=== PATIENT | female | born 1970 ===

== ENCOUNTER 2024-12-03 11:00 | Inpatient (IN) | payer MEDICAID, SELFPAY ==
[2024-12-03] VITALS (16 sets, daily range): BP systolic 92–130; BP diastolic 43–76; PULSE 59–87; RESP 16–18; TEMP 36.3–37.1; O2SAT 94–99; BMI 22.4; BMI 23.1
--- NOTE | ~2024-12-03 | CT_ITS ---
EXAMINATION: CT ABDOMEN AND PELVIS WITHOUT CONTRAST CLINICAL INFORMATION: Flank pain. Renal colic COMPARISON: None available. TECHNIQUE: Multidetector volumetric imaging was performed from the superior aspect of the liver through the pubic symphysis. Sagittal and coronal reformatted images were obtained on the technologist's workstation. This CT examination was performed using dose optimization techniques as appropriate, variously including the following: *Automated exposure control *Adjustment of mA and/or kV according to patient size (this includes techniques or standardized protocols for targeted exams where dose is matched to indication/reason for exam; i.e. extremities or head) *Use of iterative reconstruction technique DLP: 414 mGy/cm. FINDINGS: LUNG BASES: The visualized lung bases are unremarkable. LIVER, GALLBLADDER, AND BILIARY TREE: The liver is normal in size, shape, and attenuation. No focal hepatic lesion or biliary ductal dilatation is present. The gallbladder is unremarkable with no evidence of radiopaque gallstones, gallbladder wall thickening, or obvious pericholecystic inflammatory changes. PANCREAS: Unremarkable. SPLEEN: Unremarkable. ADRENAL GLANDS: Unremarkable. KIDNEYS AND URETERS: The kidneys are normal in size, shape, and attenuation. No hydronephrosis, hydroureter, or calculi seen. No perinephric stranding. BLADDER: Unremarkable. GASTROINTESTINAL TRACT: The appendix is enlarged with the distal 1 cm calcified appendicolith. There is fatty appendix fat stranding and very small lymph nodes in the ileocecal mesentery. The IC junction is unremarkable. Mild bowel loops are normal caliber. There is scattered stool in the colon without distention. No free air or free fluid seen. ABDOMINAL WALL: No significant hernia is appreciated. LYMPH NODES: Normal. VASCULAR: Unremarkable. PELVIC VISCERA: The uterus is anteverted and appears unremarkable. No adnexal mass or free fluid seen. There are round calcified lesions in the inguinal canal left slightly larger than right. They measure 1.1 cm on the right and 2.7 cm on the left. OSSEOUS STRUCTURES: No aggressive lytic or sclerotic process noted. CT/CT abdomen pelvis wo IV con IMPRESSION: Acute appendicitis with appendicolith. Mild constipation. No free air, free fluid or obstruction seen. Round and calcified lesions in the inguinal canal question old cysts. Fleischner guidelines were followed. Electronically signed by: Sergio Rodriguez MD 12/03/2024 02:04 PM EDT
--- NOTE | 2024-12-03 11:42 | ED_ITS ---
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 Last PO intake yesterday. She cannot take the pain anymore. No known fevers does not take thinners. She has no urinary symptoms. MD complaint: abdominal pain Onset (ago): day(s) (yesterday) Location: abdomen Radiation: non-radiation Severity: moderate Quality: aching Pain Consistency: constant Relieving factors: none Exacerbating factors: movement Associated symptoms: loss of appetite, malaise and nausea/vomiting Treatments prior to arrival: none Related Data Allergies Allergy/AdvReac Type Severity Reaction Status Date / Time No Known Allergies Allergy Verified 12/03/24 11:43 Review of Systems 2 Review of Systems: Constitutional : No Weight loss, No Fever, No Chills ENT/Mouth : No sore throat, No Rhinorrhea Eyes: No Swelling, No Redness Cardiovascular : No Chest Pain, No SOB, NoEdema Respiratory : No Cough, No Sputum, No Wheezing Gastrointestinal : Positive Nausea, Positive Vomiting, no Diarrhea, positive abdominal Pain, No Hematochezia, No Melena Genitourinary : No Dysuria, No Urinary Frequency, No Hematuria, No Urgency Musculoskeletal : No joint pain, No Myalgias, No Joint Swelling Skin : No Skin Lesions, No rash Neuro : No Weakness, No Numbness, No Dizziness, No Headache All other systems reviewed and are negative. [facility] Past Medical History Medical History (Updated 12/03/24 @ 14:59 by Radha Gray DO) Insomnia Surgical History (Updated 12/03/24 @ 14:53 by Radha Gray DO) H/O section Social History Social History (Updated 12/03/24 @ 14:53 by Radha Gray DO) Patient Tobacco Use Status: Never used Tobacco Advance Directives: No Advance Directives Information Provided: Yes Physical Exam ED Vital Signs: Vital Signs - 24 hr 12/03/24 11:39 12/03/24 14:09 Temperature 97.4 F 98.3 F Pulse Rate 87 70 Respiratory Rate 16 18 Blood Pressure 130/76 120/65 Pulse Oximetry 99 99 Oxygen Delivery Method Room Air Room Air BMI result Body Mass Index 22.4 Appearance: Alert. Oriented X3. No acute distress. Eyes: Pupils equal, round and reactive to light. ENT: Pharynx normal. Neck: Normal inspection. Neck supple. CVS: Normal heart rate and rhythm. Pulses normal. Respiratory: No respiratory distress. Breath sounds normal. Abdomen: Soft and moderate ttp on RLQ with guarding and rebound Skin: Skin warm and dry. Normal skin color. Normal skin turgor. Extremities: No lower extremity edema. No calf ttp Neuro: Oriented X 3. No motor deficit. No sensory deficit. CN2-12 intact Course Course Course Narrative: This is a rapid medical exam performed by Marivel Pringle PA-C. The patient is a 54-year-old female with chronic back pain who presents with right flank pain since this morning. Pain over mid to lower right flank with radiation to right lower extremity. Associated nausea vomiting. Denies dysuria, hematuria or history of kidney stones. On exam she does have positive CVA tenderness. Plan to order screening labs a urinalysis and a CT scan. The patient was stable and can return to the waiting room pending her full medical assessment. Medications Administered Discontinued Medications Generic Name Dose Route Start Last Admin Trade Name Reddq PRN Reason Stop Dose Admin Piperacillin Sod/Tazobactam 50 mls @ 100 mls/hr 12/03/24 14:19 12/03/24 14:43 Sod 3.375 gm/ Sodium Chloride IV 12/03/24 14:48 100 mls/hr ONCE ONE Administration Ketorolac Tromethamine 15 mg 12/03/24 14:19 12/03/24 14:44 Ketorolac Tromethamine 15 Mg/Ml Vial IVPUSH 12/03/24 14:20 15 mg ONCE ONE Administration Morphine Sulfate 4 mg 12/03/24 14:12/03/24 14:44 Morphine Sulfate 4 Mg/Ml Cartridge IVPUSH 12/03/24 14:20 4 mg ONCE ONE Administration Protocol Medical Decision Making Medical Decision Making MDM Narrative: 54 yo female with no sig PMH here with RLQ pain very tender to touch with nausea, last PO intake was yesterday, not on thinners here with features concerning for appendicitis. At this time basic labs, CT scan, IVF, IV morphine for pain, pending work up. NPO since arrival. Differential Diagnosis Differential Diagnoses: The differential diagnosis associated with the presentation includes appendicitis, constipation, colitis, renal colic, less likely ovarian pathology Admission/Observation Consideration of admission/observation: Escalation of care including admission/observation considered send to surgery - Dr. Landeros Lab Data MDM Lab Attestation statement: I reviewed the patient's lab results. 12/03/24 12:21 12/03/24 12:21 Labs: Lab Results 12/03/24 12/03/24 Range/Units 12:21 14:35 WBC 11.2 H (4.8-10.8) X10*3/uL RBC 4.43 (4.20-5.50) X10*6/uL Hgb 12.9 (12.0-16.0) g/dl Hct 38.6 (37.0-47.0) % MCV 87.1 (80.0-98.0) fL MCH 29.1 (27.0-33.0) pg MCHC 33.4 (31.0-35.0) g/dl RDW 12.9 (11.0-16.0) % Plt Count 255 (160-400) X10*3/uL MPV 10.1 (9.4-12.3) fL Immature Gran % (Auto) 0.3 (0.0-0.4) % Neut % (Auto) 73.3 H (45-73) % Lymph % (Auto) 16.9 L (20-40) % [place] % (Auto) 9.0 (2-11) % Eos % (Auto) 0.1 (0-4) % Baso % (Auto) 0.4 (0-2) % Lymph # (Auto) 1.9 (1.2-4.9) X10*3/uL [place] # (Auto) 1.0 (0.1-1.2) X10*3/uL Eos # (Auto) 0.0 (0.0-0.4) X10*3/uL Baso # (Auto) 0.0 (0.0-0.2) X10*3/uL Abs Immat Gran (auto) 0.03 (0.00-0.03) X10*3/uL Absolute Neuts (auto) 8.2 (2.0-8.3) x10*3/uL Absolute Nucleated RBC 0.000 (0.0-0.012) X10*3/uL Nucleated RBC % (auto) 0.0 (0.0-0.2) /100WBC Sodium 141 (135-145) mmol/L Potassium 4.1 (3.3-5.1) mmol/L Chloride 105 (96-108) mmol/L Carbon Dioxide 25 (22-29) mmol/L Anion Gap 15 (12-20) BUN 7 L (9-16) mg/dL Creatinine 0.72 (0.5-1.4) mg/dL Estim Creat Clear Calc 78.9 Estimated GFR > 60 Random Glucose 107 (60-115) mg/dL Calcium 9.8 (8.4-10.2) mg/dL Magnesium 2.1 (1.6-2.6) mg/dL Total Bilirubin 0.6 (0.0-1.0) mg/dL AST 22 (5-31) U/L ALT 17 (0-31) U/L Alkaline Phosphatase 90 (39-117) U/L Total Protein 8.0 (6.5-8.0) g/dL Albumin 4.4 (3.5-5.0) g/dL Beta HCG, Quant < 2 mIU/mL Urine Color Yellow Urine Appearance Cloudy Urine pH 8.5 (5.0-9.0) Ur Specific [place] 1.020 (1.005-1.025) Urine Protein Negative (Neg-Trace) mg/dL Urine Glucose (UA) Negative (Negative) mg/dL Urine Ketones 80 (Negative) mg/dL Urine Blood Negative (Negative) Urine Nitrite Negative (Negative) Ur Leukocyte Esterase Negative (Negative) Independent Interpretation I performed an independent interpretation of an: EKG and CT Scan (+ appendicitis) Interpretation: Rate: 78 Rhythm: NSR [place]: normal Normal P waves. Normal LION. Normal QRS complex. ST T wave : normal no DAVID qTC: 442 prior studies: no acute ischemia The study has been interpreted contemporaneously by me. . Radiology Impression Discussion of test interpretation with radiology: I have reviewed the radiologist's reading. Critical Care Time Critical Care Time Critical Care Time: Yes Total Critical Care Time: 35 Attestation: appendicitis work up, referral to surgery, IV morphine with improvement in pain. I attest to this time spent taking care of the patient Discharge Plan Discharge Clinical Impression: Abdominal pain Qualifiers: Abdominal location: right lower quadrant Qualified Code(s): R10.31 - Right lower quadrant pain Acute appendicitis Qualifiers: Acute appendicitis type: unspecified acute appendicitis type Qualified Code(s): K35.80 - Unspecified acute appendicitis Print Language: Azeri
[2024-12-03 12:29] LABS: MANUAL DIFF FLAG NO
[2024-12-03 12:31] LABS: Basophils Percent Auto 0.4 % (0-2); Eosinophils Percent Auto 0.1 % (0-4); Hematocrit 38.6 % (37.0-47.0); Hemoglobin 12.9 g/dl (12.0-16.0); Imm Gran Abs Auto 0.03 X10*3/uL (0.00-0.03); Imm Gran Pct Auto 0.3 % (0.0-0.4); Lymphocytes Absolute Auto 1.9 X10*3/uL (1.2-4.9); Lymphocytes Percent Auto 16.9 % (20-40); Mean Corpuscular HGB Conc 33.4 g/dl (31.0-35.0); Mean Corpuscular Hemoglobin 29.1 pg (27.0-33.0); Mean Corpuscular Volume 87.1 fL (80.0-98.0); Mean Platelet Volume 10.1 fL (9.4-12.3); Neutrophils Absolute Auto 8.2 x10*3/uL (2.0-8.3); Neutrophils Percent Auto 73.3 % (45-73); Platelet Count 255 X10*3/uL (160-400); Red Blood Count 4.43 X10*6/uL (4.20-5.50); Red Cell Distribution Width 12.9 % (11.0-16.0); White Blood Count 11.2 X10*3/uL (4.8-10.8)
[2024-12-03 12:53] LABS: Alanine Aminotransferase 17 U/L (0-31); Albumin Level 4.4 g/dL (3.5-5.0); Alkaline Phosphatase 90 U/L (39-117); Anion Gap 15 (12-20); Aspartate Amino Transferase 22 U/L (5-31); Bilirubin Total 0.6 mg/dL (0.0-1.0); Blood Urea Nitrogen 7 mg/dL (9-16); Calcium 9.8 mg/dL (8.4-10.2); Carbon Dioxide 25 mmol/L (22-29); Chloride 105 mmol/L (96-108); Creatinine Clr Calc Pharmacy 78.9; Estimated Glomerular Filt Rate > 60; Glucose Random 107 mg/dL (60-115); Magnesium 2.1 mg/dL (1.6-2.6); Potassium 4.1 mmol/L (3.3-5.1); Sodium 141 mmol/L (135-145)
[2024-12-03 13:00] LABS: HCG Quantitative < 2 mIU/mL
--- NOTE | 2024-12-03 14:37 | ECG_ITS ---
Test Reason : ABD PAIN Blood Pressure : */* mmHG Vent. Rate : 78 BPM Atrial Rate : 78 BPM P-R Int : 122 ms QRS Dur : 82 ms QT Int : 388 ms P-R-T Axes : 71 58 63 degrees QTcB Int : 442 ms Normal sinus rhythm Normal ECG No previous ECGs available Referred By: Radha Gray Electronically Signed By: Cory Deshpande
[2024-12-03 14:41] LABS: Appearance Urine Cloudy; Color Urine Yellow; Glucose Urine UA Negative (Negative); Leukocyte Esterase Urine Negative (Negative); Nitrite Urine Negative (Negative); PH 8.5 (5.0-9.0); Urine Blood Negative (Negative); Urine Ketones 80 mg/dL (Negative); Urine Protein Negative (Neg-Trace)
[2024-12-03] MEDS: Piperacillin Sodium/Tazobactam 3.375 GM in 0.9 % Sodium Chloride 50 ML IV ×2 (14:43→20:35)
[2024-12-03] MEDS: Ketorolac Tromethamine 15 MG/ML VIAL IVPUSH (14:44)
[2024-12-03] MEDS: Morphine Sulfate 4 MG/ML CARTRIDGE IVPUSH (14:44)
--- NOTE | 2024-12-03 15:02 | PC.NURSE ---
Report over the phone to pre-op RN. per RN hold off on LR for right now, she will hang with aster
--- NOTE | 2024-12-03 15:04 | PM.HPGS ---
History of Present Illness History of Present Illness Date of Service: 12/04/24 Chief complaint: Acute appendicitis Narrative: Guilherme Talavera is a 54 year old female here in the ED for right lower quadrant pain. She says that she has had this right core quadrant pain for 2 days now. She said she had multiple episodes of vomiting yesterday as well. She denies any diarrhea. She says the pain is constant. She denies any fever at home. She denies any medical problems. She does not have any primary care physician as she just moved from [place] to the [facility] recently. She denies taking any medications. She has a history of 2 C sections and abdominoplasty. Review of Systems Constitutional: Constitutional: Denies chills and Denies fever(s) Cardiovascular: Cardiovascular: Denies chest pain, Denies dyspnea and Denies dyspnea on exertion Respiratory: Respiratory: Denies cough, Denies dyspnea and Denies dyspnea on exertion Gastrointestinal: Gastrointestinal: Denies hematochezia and Denies change in bowel habits Genitourinary: Genitourinary: Denies hematuria Musculoskeletal: Musculoskeletal: Denies back pain and Denies limited range of motion Neurologic: Denies focal weakness and Denies convulsions Psychiatric: Psychiatric: Denies depression and Denies mood swings PMFSH Past Medical History Medical History (Updated 12/03/24 @ 15:22 by Kimberly Deras RN) History of herniated intervertebral disc Neuropathy Insomnia Surgical History Surgical History (Updated 12/04/24 @ 07:30 by Peg Dorado PA-C) H/O abdominal surgery H/O breast surgery H/O section Social History Social History (Updated 12/03/24 @ 14:53 by Radha Gray DO) Household Members: None Housing: House Are you a primary grounds caretaker to a significant other at home: No Do you presently have visiting nurse or other home services: No Unable to assess alcohol history related to: Unknown Patient Tobacco Use Status: Never used Tobacco Smoked in Last 30 Days: No Use of substances other than those prescribed or required for medical reasons: No Currently Displaying Signs/Symptoms of Drug Intoxication Withdrawal: No Have you been hit, kicked, punched, or otherwise hurt by someone within the past year? If so, by whom?: No Do you feel safe in your current relationship?: No Current Relationship Is there a partner from a previous relationship who is making you feel unsafe now?: No Are you made to feel afraid or neglected: No Are you DNR?: No Advance Directives: No Advance Directives Information Provided: No Advance Directives on File: No Do you have a plan to hurt others: No Plan Recently lost weight without trying: No How much weight loss: Not applicable Eating poorly because of decreased appetite: No Nutrition screen score: 0 Nutrition Risks: No Nutritional Risk Patient : No : No Poor oral hygiene: No Meds Allergies Allergy/AdvReac Type Severity Reaction Status Date / Time No Known Allergies Allergy Verified 12/03/24 15:18 Active Medications: Current Medications Lactated Ringer's (Lr) 1,000 mls @ 999 mls/hr IV .Q1H1M ONE Stop: 12/03/24 15:19 Physical Exam Vital Signs: Vital Signs: Last Vital Signs Temp 98.3 F 12/03/24 14:09 Pulse 70 12/03/24 14:09 Resp 18 12/03/24 14:09 BP 120/65 12/03/24 14:09 Pulse Ox 99 12/03/24 14:09 O2 Del Method Room Air 12/03/24 14:09 BMI result Body Mass Index 22.4 Const: General: comfortable and no acute distress Orientation/consciousness: patient oriented x3 Neck: Neck: Yes no lymphadenopathy Resp: Auscultation: clear to auscultation bilaterally Cardio: Rhythm: regular rhythm GI: Other: Has significant right lower quadrant tenderness Palpation (GI): Soft to palpation, Tenderness to palpation present (GI) and no guarding Neuro: General: patient oriented x3 Results Results Labs: Short CBC 12/03/24 Range/Units 12:21 WBC 11.2 H (4.8-10.8) X10*3/uL Hgb 12.9 (12.0-16.0) g/dl Hct 38.6 (37.0-47.0) % Plt Count 255 (160-400) X10*3/uL BMP 12/03/24 12:21 Sodium 141 Potassium 4.1 Chloride 105 Carbon Dioxide 25 BUN 7 L Creatinine 0.72 Calcium 9.8 Liver Function 12/03/24 Range/Units 12:21 Total Bilirubin 0.6 (0.0-1.0) mg/dL AST 22 (5-31) U/L ALT 17 (0-31) U/L Alkaline Phosphatase 90 (39-117) U/L Albumin 4.4 (3.5-5.0) g/dL Urine 12/03/24 Range/Units 14:35 Urine Color Yellow Urine Appearance Cloudy Urine pH 8.5 (5.0-9.0) Ur Specific [place] 1.020 (1.005-1.025) Urine Protein Negative (Neg-Trace) mg/dL Urine Glucose (UA) Negative (Negative) mg/dL Abdomen CT scan report/results: report reviewed and image reviewed CT scan - pelvis: report reviewed and image reviewed Additional studies: Laboratory Results WBC 11.2 X10*3/uL (4.8-10.8) H 12/03/24 12:21 RBC 4.43 X10*6/uL (4.20-5.50) 12/03/24 12:21 Hgb 12.9 g/dl (12.0-16.0) 12/03/24 12:21 Hct 38.6 % (37.0-47.0) 12/03/24 12:21 MCV 87.1 fL (80.0-98.0) 12/03/24 12:21 MCH 29.1 pg (27.0-33.0) 12/03/24 12:21 MCHC 33.4 g/dl (31.0-35.0) 12/03/24 12:21 RDW 12.9 % (11.0-16.0) 12/03/24 12:21 Plt Count 255 X10*3/uL (160-400) 12/03/24 12:21 MPV 10.1 fL (9.4-12.3) 12/03/24 12:21 Immature Gran % (Auto) 0.3 % (0.0-0.4) 12/03/24 12:21 Neut % (Auto) 73.3 % (45-73) H 12/03/24 12:21 Lymph % (Auto) 16.9 % (20-40) L 12/03/24 12:21 [place] % (Auto) 9.0 % (2-11) 12/03/24 12:21 Eos % (Auto) 0.1 % (0-4) 12/03/24 12:21 Baso % (Auto) 0.4 % (0-2) 12/03/24 12:21 Lymph # (Auto) 1.9 X10*3/uL (1.2-4.9) 12/03/24 12:21 [place] # (Auto) 1.0 X10*3/uL (0.1-1.2) 12/03/24 12:21 Eos # (Auto) 0.0 X10*3/uL (0.0-0.4) 12/03/24 12:21 Baso # (Auto) 0.0 X10*3/uL (0.0-0.2) 12/03/24 12:21 Abs Immat Gran (auto) 0.03 X10*3/uL (0.00-0.03) 12/03/24 12:21 Absolute Neuts (auto) 8.2 x10*3/uL (2.0-8.3) 12/03/24 12:21 Absolute Nucleated RBC 0.000 X10*3/uL (0.0-0.012) 12/03/24 12:21 Nucleated RBC % (auto) 0.0 /100WBC (0.0-0.2) 12/03/24 12:21 Sodium 141 mmol/L (135-145) 12/03/24 12:21 Potassium 4.1 mmol/L (3.3-5.1) 12/03/24 12:21 Chloride 105 mmol/L (96-108) 12/03/24 12:21 Carbon Dioxide 25 mmol/L (22-29) 12/03/24 12:21 Anion Gap 15 (12-20) 12/03/24 12:21 BUN 7 mg/dL (9-16) L 12/03/24 12:21 Creatinine 0.72 mg/dL (0.5-1.4) 12/03/24 12:21 Estim Creat Clear Calc 78.9 12/03/24 12:21 Estimated GFR > 60 12/03/24 12:21 Random Glucose 107 mg/dL (60-115) 12/03/24 12:21 Calcium 9.8 mg/dL (8.4-10.2) 12/03/24 12:21 Magnesium 2.1 mg/dL (1.6-2.6) 12/03/24 12:21 Total Bilirubin 0.6 mg/dL (0.0-1.0) 12/03/24 12:21 AST 22 U/L (5-31) 12/03/24 12:21 ALT 17 U/L (0-31) 12/03/24 12:21 Alkaline Phosphatase 90 U/L (39-117) 12/03/24 12:21 Total Protein 8.0 g/dL (6.5-8.0) 12/03/24 12:21 Albumin 4.4 g/dL (3.5-5.0) 12/03/24 12:21 Beta HCG, Quant < 2 mIU/mL 12/03/24 12:21 Urine Color Yellow 12/03/24 14:35 Urine Appearance Cloudy 12/03/24 14:35 Urine pH 8.5 (5.0-9.0) 12/03/24 14:35 Ur Specific [place] 1.020 (1.005-1.025) 12/03/24 14:35 Urine Protein Negative mg/dL (Neg-Trace) 12/03/24 14:35 Urine Glucose (UA) Negative mg/dL (Negative) 12/03/24 14:35 Urine Ketones 80 mg/dL (Negative) 12/03/24 14:35 Urine Blood Negative (Negative) 12/03/24 14:35 Urine Nitrite Negative (Negative) 12/03/24 14:35 Ur Leukocyte Esterase Negative (Negative) 12/03/24 14:35 Impressions Abdomen/Pelvis CT 12/03/24 11:43 IMPRESSION: Acute appendicitis with appendicolith. Mild constipation. No free air, free fluid or obstruction seen. Round and calcified lesions in the inguinal canal question old cysts. Fleischner guidelines were followed. Electronically signed by: Sergio Rodriguez MD 12/03/2024 02:04 PM EDT Assessment and Plan (1) Acute appendicitis: Qualifiers: Acute appendicitis type: unspecified acute appendicitis type Qualified Code(s): K35.80 - Unspecified acute appendicitis Status: Acute She has significant right lower quadrant pain and tenderness. Her CAT scan shows inflammatory changes surrounding the appendix with a thickened appendix and an appendicolith consistent with acute appendicitis. I therefore explained to her that it will be best to proceed with appendectomy. I explained the technique of laparoscopic appendectomy and possible open appendectomy. I reviewed the risks including but not limited to bleeding, infections, staple line leak, injury to bowel, the urinary tract or other organs, abscesses, inherent risks of anesthesia, as well as the benefits and alternatives. She understands and agrees to proceed. Her family was present during the discussion. I also used an director of healthcare systems for [place] during the discussion. She is not septic looking. Quality Stroke Does the patient have a stroke diagnosis?: No VTE Prior VTE?: No VTE Risk Level:: Medical - moderate - high VTE Device Contraindication: N/A - Device Ordered VTE Drug Contraindication: N/A - Med Ordered Procedures Date of Service Date of Service: 12/04/24
--- NOTE | 2024-12-03 15:39 | HO.ANESPROP2 ---
[facility] Active Problems Active Problems: All Active Problems Acute appendicitis (Acute) Abdominal pain (Acute) Past Medical History Medical History (Updated 12/03/24 @ 15:22 by Kimberly Deras RN) History of herniated intervertebral disc Neuropathy Insomnia Family History Family history of problems with anesthesia: No Surgical History Surgical History (Updated 12/03/24 @ 15:17 by Kimberly Deras RN) H/O abdominal surgery H/O breast surgery H/O section History of Problems with Anesthesia: No Social History Social History (Updated 12/03/24 @ 14:53 by Radha Gray DO) Are you a primary director of patient care to a significant other at home: No Do you presently have visiting nurse or other home services: No Unable to assess alcohol history related to: Unknown Patient Tobacco Use Status: Never used Tobacco Smoked in Last 30 Days: No Use of substances other than those prescribed or required for medical reasons: No Have you been hit, kicked, punched, or otherwise hurt by someone within the past year? If so, by whom?: No Are you DNR?: No Advance Directives: No Advance Directives Information Provided: No Advance Directives on File: No Recently lost weight without trying: No How much weight loss: Not applicable Eating poorly because of decreased appetite: No Nutrition screen score: 0 Nutrition Risks: No Nutritional Risk Patient : No : No Poor oral hygiene: No Meds Allergies Allergy/AdvReac Type Severity Reaction Status Date / Time No Known Allergies Allergy Verified 12/03/24 15:18 Active Medications: Current Medications Acetaminophen (Acetaminophen 325 Mg Tablet) 650 mg PO Q6H PRN PRN Reason: Pain, Mild 1-3,fever,headache Calcium Carbonate (Calcium Carbonate 750 Mg Tab.Chew) 750 mg PO Q4H PRN PRN Reason: Heartburn Heparin Sodium (Porcine) (Heparin Sodium,Porcine 5,000 Unit/Ml Vial) 5,000 unit SUBCUT Q12H DEREK Lactated Ringer's (Lr) 1,000 mls @ 100 mls/hr IVCONT .Q10H DEREK Piperacillin Sod/Tazobactam (Sod 3.375 gm/ Sodium Chloride) 50 mls @ 100 mls/hr IV Q6H DEREK Magnesium Hydroxide (Milk Of Magnesia 30 Ml Oral.Susp) 30 ml PO DAILY PRN PRN Reason: Constipation Melatonin (Melatonin 3 Mg Tablet) 6 mg PO BEDTIME PRN PRN Reason: Insomnia Ondansetron HCl (Ondansetron Hcl 4 Mg/2 Ml Vial) 4 mg IVPUSH Q6H PRN PRN Reason: nausea Sodium Chloride (0.9 % Sodium Chloride Flush 3 Ml Syringe) 3 ml IVFLUSH QSHIFT [facility] Home Medications ?Medication ?Instructions ?Recorded ?Confirmed ?Last Taken ?Type No Known Home Meds 12/03/24 12/03/24 Unknown History Exam Height,Weight and Vital Signs: Height 5 ft 4 in Weight 59.1 kg Last Vital Signs Temp 97.8 F 12/03/24 15:24 Pulse 76 12/03/24 15:24 Resp 16 12/03/24 15:24 BP 121/63 12/03/24 15:24 Pulse Ox 98 12/03/24 15:24 O2 Del Method Room Air 12/03/24 15:24 Pertinent Lab Results Pertinent Lab Results: Laboratory Tests 12/03/24 12/03/24 12:21 14:35 WBC 11.2 H RBC 4.43 Hgb 12.9 Hct 38.6 MCV 87.1 MCH 29.1 MCHC 33.4 RDW 12.9 Plt Count 255 MPV 10.1 Immature Gran % (Auto) 0.3 Neut % (Auto) 73.3 H Lymph % (Auto) 16.9 L [place] % (Auto) 9.0 Eos % (Auto) 0.1 Baso % (Auto) 0.4 Lymph # (Auto) 1.9 [place] # (Auto) 1.0 Eos # (Auto) 0.0 Baso # (Auto) 0.0 Abs Immat Gran (auto) 0.03 Absolute Neuts (auto) 8.2 Absolute Nucleated RBC 0.000 Nucleated RBC % (auto) 0.0 Sodium 141 Potassium 4.1 Chloride 105 Carbon Dioxide 25 Anion Gap 15 BUN 7 L Creatinine 0.72 Estim Creat Clear Calc 78.9 Estimated GFR > 60 Random Glucose 107 Calcium 9.8 Magnesium 2.1 Total Bilirubin 0.6 AST 22 ALT 17 Alkaline Phosphatase 90 Total Protein 8.0 Albumin 4.4 Beta HCG, Quant < 2 Urine Color Yellow Urine Appearance Cloudy Urine pH 8.5 Ur Specific [place] 1.020 Urine Protein Negative Urine Glucose (UA) Negative Urine Ketones 80 Urine Blood Negative Urine Nitrite Negative Ur Leukocyte Esterase Negative Airway Mallampati Class: II (right upper lateral implant) TM Dist: >3cm Neck ROM: Full Heart: rrr Lungs: cta Assessment and Plan Assessment Anesthesia Assessment: Anesthesia Plan Discussed and Chart Reviewed Final Anesthetic Review Family History of Problems with Anesthesia: No History of Problems with Anesthesia: No NPO: Yes ASA Class: II Final Preanesthetic Review: No Changes in Pt Med Stat, Meds/Allgs Chart Reviewed and Consent Obtained/Reviewed Patient Risk: Low Procedure Risk: Low Anesthetic Plan Anesthetic Plan: GA Disposition: Standard PACU
--- NOTE | 2024-12-03 17:04 | W.PM.OPN ---
Operative Note Operative Note Date of Service: 12/03/24 Narrative: Preop diagnosis: Acute appendicitis Postop diagnosis: The same with extensive adhesions Procedure: Laparoscopic appendectomy, with extensive lysis of adhesions Surgeon: Chinmay Landeros MD International Project Engineer: SUKHJINDER Lambert student The patient is a 54 year female with right lower quadrant pain for 2 days. Her CAT scan suggest acute appendicitis with an appendicolith. I recommended proceeding with appendectomy. She understood the technique of the planned procedure as well as the risks, benefits, and alternatives She was brought to the operating room. She was placed supine under general anesthesia via endotracheal tube. A Pringle catheter had been inserted. The abdomen was prepped and draped in the usual sterile fashion. A surgical time-out was done. The patient had received scheduled IV antibiotics in the ED I made a short supraumbilical incision with a blade 15. And this was carried down with blunt dissection through the full-thickness of the skin and subcutaneous fat down to the fascia. The fascia was incised. The peritoneum was entered. Through this incision a Meraz port was introduced. Pneumoperitoneum was introduced to a pressure of 15 mm Hg. From here on the rest of the procedure was done under vision with with a 10 mm 30 degree laparoscope. With laparoscopic visualization and inserted a 5/12 mm port in the left lower quadrant through a small stab incision. A 5 mm port was introduced through a small incision in the suprapubic margin. Graspers were placed through this working ports. The patient was placed in a head down and [id number] position. There was note of extensive adhesions in the lower abdomen from her previous C-sections. I had to do careful lysis of adhesions with the LigaSure. Eventually was able to release all these adhesions and achieve visualization on the lower abdomen The cecum was seen. By following this, as able to visualize the very indurated appendix that was very adherent to the right sidewall. I had to do careful dissection with the LigaSure to release this indurated adhesions tethering the appendix to the sidewall. I then applied a grasper on the mid appendix to retract this. By doing so was able to visualize this interface with the cecum. I used the LigaSure carefully create a mesenteric window. This was done at the base of the appendix. I then used the Endo-MARSHALL 30 mm stapler to divide the appendix at the base. I then retracted the appendix to carefully identify the mesoappendix. I had to do careful dissection with the LigaSure to divide the mesoappendix. The distal artery was seen and this was divided as well with a against LigaSure. I continued to divide the very indurated and markedly inflamed mesoappendix using the LigaSure carefully anterior the entire appendix was completely transected. The appendix was retrieved through an endobag through the left lower quadrant incision I reinserted all ports and re-insufflated. I examined all 4 quadrants. There was no other pathology. There was no evidence of any bowel injury. There was note of good hemostasis on the staple line. There was no bleeding seen I therefore desufflated. I desufflated through the port and removed all ports under vision with the laparoscope. The umbilical port was removed last. The fascia of the umbilical incision was closed with a [id number] Polysorb 0 stitch. Skin closure was achieved on all incisions using Polysorb 4-0 subcuticular running sutures. Dressings were applied and the procedure was completed The patient tolerated procedure well. There were no immediate complications. Initial final counts of sponges and instruments were correct. Estimated blood loss was about 25 cc The patient was extubated without difficulty and transferred to the recovery room with stable vital signs. The Pringle catheter was removed at the end.
--- NOTE | 2024-12-03 17:24 | PM.EVENT ---
Event Note Date of Service: 12/04/24 Event Note: Seen in the recovery room postop Status post laparoscopic appendectomy She says she has good pain control Stable vital signs Abdomen soft I explained to her the findings I updated her family She is okay to have diet tonight Pain management Possible home tomorrow Time Spent With Patient Time: Total time managing care of this patient today ____ minutes.
--- NOTE | 2024-12-03 19:28 | PHA.MEDREC ---
Addendum entered by Kade [facility] 12/03/24 19:35: Med rec checked by [facility] Original Note: Pharmacy Consult ? Medication Reconciliation Pharmacy has reviewed the medication reconciliation done by nursing.
[2024-12-03] MEDS: Lactated Ringers 1,000 ML 80 ML IVCONT (19:43)
[2024-12-03] MEDS: 0.9 % Sodium Chloride Flush 3 ML SYRINGE IVFLUSH (19:47)
[2024-12-03] MEDS: Morphine Sulfate 4 MG/ML CARTRIDGE 3 MG IVPUSH (22:29)
[2024-12-03] MEDS: Melatonin 3 MG TABLET 6 MG PO (22:30)
[2024-12-04] MEDS: Piperacillin Sodium/Tazobactam 3.375 GM in 0.9 % Sodium Chloride 50 ML IV (02:25)
[2024-12-04 03:38] VITALS: BP 111/58; PULSE 58; RESP 16; TEMP 36; O2SAT 98
[2024-12-04 06:51] VITALS: BP 100/54; PULSE 59; RESP 16; TEMP 36.6; O2SAT 99
--- NOTE | 2024-12-04 07:29 | PM.PNGS ---
Subjective Subjective Date of Service: 12/04/24 <Peg Dorado PA-C - Last Filed: 12/04/24 07:32> 12/04/24 <Chinmay Landeros MD - Last Filed: 12/04/24 07:54> Interval history: Feels well. Tolerating solid diet without nausea or vomiting. OOB and ambulating, voiding on own. Mild pain but comfortable. Feels ready for discharge. <Peg Dorado PA-C - Last Filed: 12/04/24 07:32> Physical Exam Vital Signs: Vital Signs: Last Vital Signs Temp 97.9 F 12/04/24 06:51 Pulse 59 12/04/24 06:51 Resp 16 12/04/24 06:51 BP 100/54 L 12/04/24 06:51 Pulse Ox 99 12/04/24 06:51 O2 Del Method Room Air 12/04/24 06:51 BMI result Body Mass Index 23.1 <Peg Dorado PA-C - Last Filed: 12/04/24 07:32> Const: General: comfortable, no acute distress and alert <Peg Dorado PA-C - Last Filed: 12/04/24 07:32> Orientation/consciousness: patient oriented x3 <ISRRAEL Peoples Last Filed: 12/04/24 07:32> Resp: Effort & Inspection: normal respiratory effort <Peg Dorado PA-C - Last Filed: 12/04/24 07:32> GI: Inspection: No distended and Yes incision (dressings intact) <Peg Dorado PA-C - Last Filed: 12/04/24 07:32> Palpation (GI): Soft to palpation, Tenderness to palpation present (GI) (mild incisional) and no guarding <Peg Dorado PA-C - Last Filed: 12/04/24 07:32> Skin: General skin exam: no rashes or lesions noted <ISRRAEL Peoples Last Filed: 12/04/24 07:32> Neuro: General: patient oriented x3 and moves all extremities <ISRRAEL Peoples Last Filed: 12/04/24 07:32> Objective Data Active Medications Acetaminophen (Acetaminophen 325 Mg Tablet) 650 mg PO Q6H PRN PRN Reason: Pain, Mild 1-3,fever,headache Calcium Carbonate (Calcium Carbonate 750 Mg Tab.Chew) 750 mg PO Q4H PRN PRN Reason: Heartburn Heparin Sodium (Porcine) (Heparin Sodium,Porcine 5,000 Unit/Ml Vial) 5,000 unit SUBCUT Q12H [facility] Piperacillin Sod/Tazobactam (Sod 3.375 gm/ Sodium Chloride) 50 mls @ 100 mls/hr IV Q6H [facility] Last Infusion: 12/04/24 02:59 Dose: Infused Documented By: PRASANNA Lactated Ringer's (Lr) 1,000 mls @ 80 mls/hr IVCONT .[id number] [facility] Last Infusion: 12/04/24 02:59 Dose: 80 mls/hr Documented By: PRASANNA Magnesium Hydroxide (Milk Of Magnesia 30 Ml Oral.Susp) 30 ml PO DAILY PRN PRN Reason: Constipation Melatonin (Melatonin 3 Mg Tablet) 6 mg PO BEDTIME PRN PRN Reason: Insomnia Last Admin: 12/03/24 22:30 Dose: 6 mg Documented By: PRASANNA Morphine Sulfate (Morphine Sulfate 4 Mg/Ml Cartridge) 3 mg IVPUSH Q4H PRN; Protocol PRN Reason: Pain, Severe (Pain Scale 7-10) Last Admin: 12/03/24 22:29 Dose: 3 mg Documented By: PRASANNA Ondansetron HCl (Ondansetron Hcl 4 Mg/2 Ml Vial) 4 mg IVPUSH Q6H PRN PRN Reason: nausea Oxycodone HCl (Oxycodone Hcl Immed Release 5 Mg Tablet) 5 mg PO Q4H PRN PRN Reason: Pain, Moderate(Pain Scale 4-6) Sodium Chloride (0.9 % Sodium Chloride Flush 3 Ml Syringe) 3 ml IVFLUSH QSHIFT [facility] Last Admin: 12/04/24 06:53 Dose: Not Given Documented By: TRAN Non-Admin Reason: IV Running <Peg Dorado PA-C - Last Filed: 12/04/24 07:32> Labs CBC & Chem 7: 12/03/24 12:21 12/03/24 12:21 <ISRRAEL Peoples Filed: 12/04/24 07:32> Labs: Laboratory Results - last 24 hr 12/03/24 12/03/24 12:21 14:35 MCV 87.1 MCH 29.1 MCHC 33.4 RDW 12.9 Plt Count 255 MPV 10.1 Immature Gran % (Auto) 0.3 Neut % (Auto) 73.3 H Lymph % (Auto) 16.9 L [place] % (Auto) 9.0 Eos % (Auto) 0.1 Baso % (Auto) 0.4 Lymph # (Auto) 1.9 [place] # (Auto) 1.0 Eos # (Auto) 0.0 Baso # (Auto) 0.0 Abs Immat Gran (auto) 0.03 Absolute Neuts (auto) 8.2 Absolute Nucleated RBC 0.000 Nucleated RBC % (auto) 0.0 Anion Gap 15 Estim Creat Clear Calc 78.9 Estimated GFR > 60 Random Glucose 107 Calcium 9.8 Magnesium 2.1 Total Bilirubin 0.6 AST 22 ALT 17 Alkaline Phosphatase 90 Total Protein 8.0 Albumin 4.4 Beta HCG, Quant < 2 Urine Color Yellow Urine Appearance Cloudy Urine pH 8.5 Ur Specific [place] 1.020 Urine Protein Negative Urine Glucose (UA) Negative Urine Ketones 80 Urine Blood Negative Urine Nitrite Negative Ur Leukocyte Esterase Negative <Peg Dorado PA-C - Last Filed: 12/04/24 07:32> Procedures Date of Service Date of Service: 12/04/24 <Peg Dorado PA-C - Last Filed: 12/04/24 07:32> 12/04/24 <Chinmay Landeros MD - Last Filed: 12/04/24 07:54> Progress Note: A&P Assessment and plan (1) Acute appendicitis: Status: Acute <Peg Dorado PA-C - Last Filed: 12/04/24 07:32> Assessment and Plan: Tolerating diet Feels well overall Abdomen is soft and benign Looks well Okay to DC home today I have discussed with the plan for follow-up and wound care Seen and examined independently <Chinmay Landeros MD - Last Filed: 12/04/24 07:54> (2) S/P laparoscopic appendectomy: Status: Acute <Peg Dorado PA-C - Last Filed: 12/04/24 07:32> Assessment and Plan: POD #1 s/p lap appy. Doing well post op, comfortable, tolerating diet. VSS. Abd exam benign with appropriate post op tenderness, clean dressings. Stable for discharge to home today. F/u in office in 2 weeks. <Peg Dorado PA-C - Last Filed: 12/04/24 07:32> Time Spent With Patient Time: Total time managing care of this patient today ____ minutes. <Peg Dorado PA-C - Last Filed: 12/04/24 07:32> Quality Stroke Does the patient have a stroke diagnosis?: No <Peg Dorado PA-C - Last Filed: 12/04/24 07:32> VTE Prior VTE?: No <Peg Dorado PA-C - Last Filed: 12/04/24 07:32> VTE Risk Level:: Medical - moderate - high <Peg Dorado PA-C - Last Filed: 12/04/24 07:32> VTE Device Contraindication: N/A - Device Ordered <Peg Dorado PA-C - Last Filed: 12/04/24 07:32> VTE Drug Contraindication: N/A - Med Ordered <Peg Dorado PA-C - Last Filed: 12/04/24 07:32>
--- NOTE | 2024-12-04 08:21 | HO.POSTANES ---
Post Anesthesia Evaluation Post Anesthesia Evaluation Date of Service: 12/04/24 Vital Signs: Vital Signs Temp Pulse Resp BP Pulse Ox O2 Del Method 12/04/24 06:51 97.9 F 59 16 100/54 L 99 Room Air 12/04/24 03:38 96.8 F 58 16 111/58 L 98 Room Air 12/03/24 23:17 97.5 F 59 16 105/60 94 Room Air Anesthesia: General Mental Status: Awake Pain Control: Satisfactory Nausea/Vomiting: None Hydration: Adequate Anesthesia-Related Issues: No Anes. Related Issues
--- NOTE | 2024-12-04 11:02 | PM.DS ---
DS: Providers Provider Date of Service: 12/04/24 Date of admission: 12/03/24 15:21 Date of discharge: 12/04/24 Primary care physician: None Physician Attending physician on admission: Chinmay Landeros Attending physician on discharge: Chinmay Landeros DS: Diagnosis Discharge Diagnosis (1) Acute appendicitis: Status: Acute DS: Summary Hospital Course Hospital Course: HPI AT ADMISSION: Guilherme Talavera is a 54 year old female here in the ED for right lower quadrant pain. She says that she has had this right core quadrant pain for 2 days now. She said she had multiple episodes of vomiting yesterday as well. She denies any diarrhea. She says the pain is constant. She denies any fever at home. She denies any medical problems. She does not have any primary care physician as she just moved from [place] to the [facility] recently. She denies taking any medications. She has a history of 2 C sections and abdominoplasty. HOSPITAL COURSE: The patient was admitted to the surgical service for further treatment of the acute appendicitis. She elected to proceed with laparoscopic appendectomy. She was added onto the OR schedule for that day. On 12/03/24, a laparoscopic appendectomy was performed by Dr. Landeros without complication. The patient tolerated the procedure well. She had an uncomplicated recovery course. On POD #1, she felt well and was tolerating a solid diet without nausea or vomiting, had good pain control and was ambulating without difficulty. She was hemodynamically stable. Her abdomen was benign with appropriate post op tenderness and clean and intact dressings. She felt ready for discharge. She was discharged to home on 12/04/24 in stable condition. She is to follow up in the office in 2 weeks. Status at Discharge Functional status at discharge: independent ambulation Overall status at discharge: patient is progressing back to baseline Time Attestation Discharge Coordination Time (in mins): 30 Quality: Safe Use of Opioids Does Pt have an Active Cancer Diagnosis on the Problem List?: No Quality: Stroke Does the patient have a stroke diagnosis?: No Physical Exam Vital Signs: Vital Signs: Last Vital Signs Temp 97.9 F 12/04/24 06:51 Pulse 59 12/04/24 06:51 Resp 16 12/04/24 06:51 BP 100/54 L 12/04/24 06:51 Pulse Ox 99 12/04/24 06:51 O2 Del Method Room Air 12/04/24 06:51 BMI result Body Mass Index 23.1 Const: General: comfortable, no acute distress and alert Orientation/consciousness: patient oriented x3 Resp: Effort & Inspection: normal respiratory effort GI: Inspection: No distended and Yes incision (dressings c/d/i) Palpation (GI): Soft to palpation, Tenderness to palpation present (GI) (mild incisional) and no guarding Skin: General skin exam: no rashes or lesions noted Neuro: General: patient oriented x3 and moves all extremities DS: Data Data Completed and Pending Pending studies at discharge: Pending at discharge 12/03/24 16:40 Surgical [PTH] Routine Labs on day of discharge: Laboratory Results - last 24 hr 12/03/24 12/03/24 12:21 14:35 WBC 11.2 H RBC 4.43 Hgb 12.9 Hct 38.6 MCV 87.1 MCH 29.1 MCHC 33.4 RDW 12.9 Plt Count 255 MPV 10.1 Immature Gran % (Auto) 0.3 Neut % (Auto) 73.3 H Lymph % (Auto) 16.9 L [place] % (Auto) 9.0 Eos % (Auto) 0.1 Baso % (Auto) 0.4 Lymph # (Auto) 1.9 [place] # (Auto) 1.0 Eos # (Auto) 0.0 Baso # (Auto) 0.0 Abs Immat Gran (auto) 0.03 Absolute Neuts (auto) 8.2 Absolute Nucleated RBC 0.000 Nucleated RBC % (auto) 0.0 Sodium 141 Potassium 4.1 Chloride 105 Carbon Dioxide 25 Anion Gap 15 BUN 7 L Creatinine 0.72 Estim Creat Clear Calc 78.9 Estimated GFR > 60 Random Glucose 107 Calcium 9.8 Magnesium 2.1 Total Bilirubin 0.6 AST 22 ALT 17 Alkaline Phosphatase 90 Total Protein 8.0 Albumin 4.4 Beta HCG, Quant < 2 Urine Color Yellow Urine Appearance Cloudy Urine pH 8.5 Ur Specific [place] 1.020 Urine Protein Negative Urine Glucose (UA) Negative Urine Ketones 80 Urine Blood Negative Urine Nitrite Negative Ur Leukocyte Esterase Negative Discharge Plan Discharge Anticipated Discharge Date/Time: 12/04/24 09:51 Patient Disposition: Home, Self-Care Discharge Diagnosis: acute appendicitis, s/p lap appy Referrals: Chinmay Landeros MD [Physician] - 2 Weeks Physician,None [Primary Care Provider] - 1 Week Discharge Medications: New docusate sodium [Colace] 100 mg capsule 100 mg PO BID Qty: 30 0RF oxycodone 5 mg tablet 5 mg PO Q4H PRN (Reason: pain (scale score 7-10)) Qty: 26 0RF Rx Instructions: Partial Fill upon patient request. Discharge Orders: Discharge Order (Routine); Ordered 12/04/24 Ordered By: Peg Dorado Diet: Advance to usual diet Activity on Discharge: No heavy lifting Stand Alone Forms: Patient Portal Discharge page Print Language: Greek Activity Restrictions/Additional Instructions: If the incision area is tender, you may apply an ice pack for short intervals (No more than 20 minutes on, followed by at least 20 minutes off). Do not apply heat. Do not use creams, lotions, or topical antibiotics. These can cause infection or allergic reaction. Ok to shower 24 hours after your surgery. Remove bandaids in 2 days and replace. You have steri strips (small white cloth strips) covering your incision- these will fall off ~1 week. Follow up in office with Dr. Landeros in 2 weeks. ([phone]) No heavy lifting (>10-20lbs) or strenuous activity! Call Your Doctor If: -Your temperature exceeds 101? F -You experience excessive pain or swelling -You have an unexpected reaction to medication -You have excessive bleeding -You experience continued vomiting/nausea -Your incision begins to separate -Your incision shows signs of infection such as increased redness, swelling, excessive pain, drainage (light blood or clear fluid is normal) or heat Care Plan Goals: Return to baseline health and resume normal activities following recovery period. Health Concerns: acute appendicitis Plan of Treatment: s/p laparoscopic appendectomy Assessment: Doing well post op.
[2024-12-04] MEDS: oxyCODONE HCl Immed Release 5 MG TABLET PO (11:34)
--- NOTE | 2024-12-04 12:12 | MHC.CM.PN ---
Patient medically cleared for dc home self care via private transport prior to CM assessment.
== END 2024-12-04 11:48 | disposition home or self-care (01) | DRG 224 ==
LOC: HO.ED 14:49 → HO.SSS 15:04 → HO.EDOVER 15:23 → HO.S3 19:01
PROVIDERS: Physician Assistant Medical; Admitting Provider Surgery; Emergency Provider Emergency Medicine; Visit Provider Surgery
PROC: 0DTJ4ZZ Resection of Appendix, Percutaneous Endoscopic Approach (ICD-10-PCS; CPT 44970; principal; 2024-12-03 16:00)
DX: K35.80 Unspecified acute appendicitis (principal); G62.9 Polyneuropathy, unspecified; N99.4 Postprocedural pelvic peritoneal adhesions
CPT/HCPCS: 44970; 36415; 74176; 80053; 81003; 83735; 84702; 85025; 88304; 93005; 99221; 99285; J0330; J1100; J1885; J2003; J2250; J2270; J2405; J2543; J2704; J2795; J3010; J7120

== ENCOUNTER → 2024-12-03 11:43 | Outpatient (BNV) | payer MEDICAID, SELFPAY | PROVIDERS: Emergency Provider Emergency Medicine; Visit Provider Radiology Diagnostic Radiology | DX: N20.0 Calculus of kidney (principal) | CPT/HCPCS: 74176 ==

== ENCOUNTER → 2024-12-03 14:37 | Outpatient (BNV) | payer MEDICAID, SELFPAY | PROVIDERS: Admitting Provider Surgery; Emergency Provider Emergency Medicine; Visit Provider Internal Medicine Cardiovascular Disease | DX: K35.80 Unspecified acute appendicitis (principal) | CPT/HCPCS: 93010 ==

== ENCOUNTER → 2024-12-03 15:21 | Outpatient (BNV) | payer MEDICAID, SELFPAY | PROVIDERS: Admitting Provider Surgery; Emergency Provider Emergency Medicine; Visit Provider Physician Assistant Surgical | DX: K35.80 Unspecified acute appendicitis (principal); Z90.49 Acquired absence of other specified parts of digestive tract | CPT/HCPCS: 99024; 99222; 99499 ==

== ENCOUNTER 2024-12-11 08:33 | Outpatient (AMB) | payer MEDICAID, SELFPAY ==
--- NOTE | 2024-12-11 08:39 | A.OFFVIS_ITS ---
Intake Visit Reasons: s/p lap kale Intake Note: Patient here s/p Laparoscopic appendectomy, with extensive lysis of adhesions. Reports incisions healing well. Steri strips fell. Patient c/o: abd feels tender to touch when pressed. Taking rx pain meds for sleep. Surgery: 12-03-2024. 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 She had undergone 12/03/2024. She tolerated procedure well and was discharged on postop day 1. She says she is doing well overall. She denies significant complaints. She does describe some mild incisional pain. She has good GI functions. [facility] Medical History History of herniated intervertebral disc Neuropathy Insomnia Surgical History H/O abdominal surgery H/O breast surgery H/O section Social History Household Members: None Housing: House Are you a primary before and after school daycare worker to a significant other at home: No Do you presently have visiting nurse or other home services: No Unable to assess alcohol history related to: Unknown Patient Tobacco Use Status: Never used Tobacco Review of Systems Const Denies chills and Denies fever(s) Card Denies chest pain, Denies dyspnea and Denies dyspnea on exertion Resp Denies cough, Denies dyspnea and Denies dyspnea on exertion GI Denies hematochezia and Denies change in bowel habits Denies hematuria Musc Denies back pain and Denies limited range of motion Neuro Denies focal weakness and Denies convulsions Psych Denies depression and Denies mood swings Physical Exam Const General: comfortable and no acute distress Resp Effort & Inspection: normal respiratory effort GI Other: All incisions are well healed, no evidence of infection, hernias Palpation (GI): Soft to palpation, not firm and no guarding Assessment & Plan Assessment & Plan (1) S/P laparoscopic appendectomy: Code(s): Z90.49 - Acquired absence of other specified parts of digestive tract Category: Surgical Plan: She continues to do very well. All incisions are well healed. I advised her to avoid lifting anything more than 20 lb for at least 3 more weeks. She can otherwise follow up on a p.r.n. basis She does not have any primary care physician in the area as she had just moved from was done so we will assist her with this as well. Coding Level of Care Code Global (98627) Diagnoses S/P laparoscopic appendectomy Z90.49
--- OUTSIDE RECORDS SUMMARY | 2024-12-11 09:04 | XMS_ITS | Clinical Summary ---
Author Organization [facility] Address [address] [place] [address] Care Team Providers Care Duplicate Maker Name Role Phone Sue Hampton Primary Care Provider [phone] Source Comments PLEASE NOTE, if this patient is a minor, it may be UNLAWFUL to discuss sensitive information that is contained in these records (such as FAMILY PLANNING, MENTAL HEALTH or SUBSTANCE ABUSE) with the minor patient's parent or other person without the patient's specific authorization.[facility] Allergies Active Allergy Reactions Criticality Noted Date Comments Pollen Rash Medium 02/16/2015 RASH AROUND EYES Medications cyclobenzaprine (FLEXERIL) 10 mg tabletIndicatio ns:Lumbar back pain Take 1 Tablet by mouth nightly at bedtime 10 Tablet 12/26/2023 Active lidocaine (LIDODERM) 5 % patchIndication s:Lumbar back pain Place 1 Patch onto the skin daily. Place 1 patch to clean/dry/gregg rless skin where most painful and leave on for 12 hours. Remove patch and wait 12 hours before putting on a new patch. 30 Patch 1 12/26/2023 Active acetaminophen (TYLENOL) 500 mg capsuleIndicati ons:Lumbar back pain Take 2 Capsules by mouth every 6 (six) hours as needed for pain 60 Capsule 12/26/2023 Active fluconazole (DIFLUCAN) 150 mg tabletIndicatio ns:Candidiasis of vagina Take one tab po now and repeat in 72 hours if symptoms still present. 2 Tablet 12/28/2023 Active Active Problems Problem Noted Date Diagnosed Date Mass of left breast 02/25/2024 Prediabetes 12/27/2023 Assessment & Plan (12/27/2023 11:48 AM EDT): a1c in prediabetes range. Discussed risk factors including increased risk for developing diabetes over the next 5 years, and how exercise can decrease that risk with 5-10% of total body weight loss, as well as metformin use for tx. Advised eating carbs like wheat bread, brown rice or wild rice, green leafy vegetables, limiting sugar including sugary drinks, increasing fiber content, portion control, drinking plenty of water and staying active with exercise. Plan: Will manage with diet and exercise. Will repeat in 6-12 months Lab Results Component Value Date HGBA1C 5.8 (H) 12/26/2023 HGBA1C 5.6 12/06/2021 HGBA1C 5.6 12/06/2021 Lack of adequate food (Z59.4) 12/26/2023 Chronic right ear pain 12/26/2023 Overview (12/26/2023): [ ] ENT referral 12/27/2023 Assessment & Plan (12/26/2023 12:08 PM EDT): R ear canal edematous with some white crusting notable Uncertain if aspergillus infection has returned Ear has been debrided in the past Discussed the need to return to ENT [facility] for evaluation Urgent ENT referral placed. Vitamin D deficiency 12/15/2021 Assessment & Plan (12/26/2023 11:14 AM EDT): Not taking supplements Will recheck Assessment & Plan (12/15/2021 1:07 PM EDT): A: Vit d is low P: Will start supplementation x 8 weeks. Advised to take one tab a week x 8 weeks. Lumbar back pain 12/01/2021 Overview (12/26/2023): [ ] ortho referral 12/27/2023 11/30/2021: per xray of back FINDINGS: Normal alignment. Transitional lumbosacral anatomy with presumptive partially lumbarized S1 vertebra. Normal vertebral body heights. Normal intervertebral disc spaces. Intact sacroiliac joints. Probable cholelithiasis. Assessment & Plan (12/26/2023 12:06 PM EDT): Lost to f/u with ortho Having continued back pain in lumbar area with muscle tight and knotted during palpation today with L > R Discussed short course of naproxen starting tomorrow Toradol injection given today with good improvement May take tylenol for break-through pain Flexeril nightly Referral placed to return to ortho ED precautions and f/u instructions discussed with patient verbalizing understanding Assessment & Plan (12/20/2021 12:26 PM EDT): FINDINGS: Normal alignment. Transitional lumbosacral anatomy with presumptive partially lumbarized S1 vertebra. Normal vertebral body heights. Normal intervertebral disc spaces. Intact sacroiliac joints. Probable cholelithiasis. Discussed findings on xray with increased likelihood of chronic pain given results Patient is open to being referred to ortho Referral placed for ortho Assessment & Plan (12/01/2021 9:42 AM EDT): Chronic lumbar back pain atraumatic Has used lido patches in the past which have helped a little bit. No red flag signs. Pain has been for years.no numbness or tingling. Plan: Will get xray given atraumatic Start lido patches prn Flexeril nightly prn for muscle spasm RTC should symptoms persist May need PT consult Psychophysiological insomnia 12/01/2021 Assessment & Plan (12/01/2021 9:34 AM EDT): Has been using benadryl with no relief Given chronic continued back pain will trial flexeril prn for sleep and muscle pain F/u in 4-6 weeks Sooner prn Blurry vision 12/01/2021 Overview (05/02/2022): [ ] referral opthalmology Assessment & Plan (05/02/2022 1:33 PM EDT): Never heard from optometry Asking for opthalmology referral 'referral placed. Assessment & Plan (12/01/2021 9:33 AM EDT): Symptoms consistent with presbyopia Will refer to eye clinic Aspergillus ([facility]) 02/09/2021 Overview (02/25/2021): 02/18/2021: going to have ear surgery--r tympanoplasty with ossicular chain reconstruction, tragal cartilage graft with facial nerve monitoring laser. Per ENT note 02/01/2021: Aggressive Aspergillus otomastoiditis with TM perforation. Debrided--advised to use Acetasol hold for burning. Will check CT scan and referred to Dr. Covarrubias. Assessment & Plan (12/26/2023 12:09 PM EDT): R ear canal edematous with some white crusting notable Uncertain if aspergillus infection has returned Ear has been debrided in the past Discussed the need to return to ENT [facility] for evaluation Urgent ENT referral placed. Assessment & Plan (12/01/2021 9:37 AM EDT): No longer having ear pain Ear looked at by Dr. Sanderson as well. Scarring and remnants of previous aspergillus infection noted in right ear. Advised to monitor symptoms and if pain returns that she needs to f/u with ENT as she was suppose to see a ENT specialist in [place] and never followed up. Declined to return at this time due to not having any current pain. Advised to f/u with ENT specialist utd. Patient verbalized understanding and will f/u with specialist as directed. Irregular menstruation 07/13/2020 Overview (07/13/2020): [ ] OBGYN referral pending Assessment & Plan (12/26/2023 12:12 PM EDT): Periods still come monthly however patient concerned about perimenopause and is requesting female hormones to be checked Discussed menopause is when no menses is present for 12 consecutive months. Citlaly-menopause usually causes an irregular period +- hot flashes, mood swing, difficulty sleeping, weight gain, night sweats. Highly unlikely menopause but will check hormones. Assessment & Plan (11/30/2021 2:13 PM EDT): No longer irregular Starts on day 3 for 3-5 days Assessment & Plan (07/13/2020 10:12 AM EDT): Discussed perimenopausal symptoms and late menses most likely due to injection to stop the excessive bleeding. Does have hx of fibroids per u[place] country; although [facility] [place] the [place] doesn't show any fibroids on report. She would like to speak to specialist so referral placed for OBGYN. Advised to f/u with OBGYN utd. Hyperlipidemia 06/20/2019 Overview (12/27/2023): [ ] repeat 12/2024 The 10-year ASCVD risk score (Kenton MADRID, et al., 2019) is: 0.7% Lab Results Component Value Date TRIGLYC 65 12/26/2023 CHOL 220 (H) 12/26/2023 HDL 70 12/26/2023 LDL 134 (H) 12/26/2023 CHOLHDL 3.1 12/26/2023 NONHDL 150 (H) 12/26/2023 Assessment & Plan (12/27/2023 11:47 AM EDT): A: Lab Results Component Value Date TRIGLYC 65 12/26/2023 CHOL 220 (H) 12/26/2023 HDL 70 12/26/2023 LDL 134 (H) 12/26/2023 CHOLHDL 3.1 12/26/2023 NONHDL 150 (H) 12/26/2023 The 10-year ASCVD risk score (Kenton MADRID, et al., 2019) is: 0.7% P: will manage with diet and exercise due to low risk score. Discussed dietary and lifestyle changes. Will repeat labs in 12M. Sooner prn. Assessment & Plan (12/26/2023 11:39 AM EDT): Will recheck lipids No previous indication for STATIN therapy Lab Results Component Value Date TRIGLYC 72 12/06/2021 CHOL 199 12/06/2021 HDL 54 12/06/2021 LDL 131 (H) 12/06/2021 CHOLHDL 70 04/04/2017 NONHDL 145 12/06/2021 The 10-year ASCVD risk score (Kenton MADRID, et al., 2019) is: 0.9% Assessment & Plan (12/15/2021 1:07 PM EDT): Lab Results Component Value Date TRIGLYC 72 12/06/2021 CHOL 199 12/06/2021 HDL 54 12/06/2021 LDL 131 (H) 12/06/2021 NONHDL 145 12/06/2021 The 10-year ASCVD risk score (Adam CRUZ Jr., et al., 2013) is: 0.9% Mild increase in LDL No indication for statin yet Will manage with exercise and dietary measures. F/u in 6-12M Assessment & Plan (11/30/2021 2:13 PM EDT): A: Needs to be evaluated. Lab work needs to be done P: Lab work ordered for this week. Will f/u s/p lab results Assessment & Plan (07/13/2020 10:08 AM EDT): --Needs to be evaluated --Lab work needs to be done --Lab work ordered for this week --Will f/u s/p lab results Assessment & Plan (06/20/2019 11:20 AM EDT): Discussed dietary changes and exercise habits. Generalized anxiety disorder 05/16/2017 Overview (05/16/2017): Pt reports history of anxiety, symptoms got worse 2 years ago due to multiple stressors including leaving her children in her home country and adjusting to a new culture. Pt reports muscle tension, sleep disturbance, irritability, impulsivity, over eating, agitation, poor concentration and memory and low self esteem. Assessment & Plan (12/01/2021 9:38 AM EDT): No current symptoms Stable Call clinic should symptoms return Assessment & Plan (07/13/2020 10:09 AM EDT): Psychological condition is stable. Plan: Continue current treatment regimen. Regular aerobic exercise. Psychological condition will be reassessed at the next regular appointment. Stable. Not having current symptoms. Advised to call clinic should symptoms return. Assessment & Plan (07/18/2017 9:45 AM EDT): A: Anxiety symptoms P: Provide psychoeducation. Learn relaxation skills. Cognitive restructuring. Assessment & Plan (06/27/2017 8:19 AM EDT): A: Anxiety symptoms P: Provide psychoeducation. Learn relaxation skills. Cognitive restructuring. Assessment & Plan (06/13/2017 8:35 AM EDT): A: Anxiety symptoms P: Build therapeutic alliance. Provide psychoeducation. Learn relaxation skills. Cognitive restructuring. Assessment & Plan (06/05/2017 12:58 PM EDT): A: Anxiety symptoms P: Build therapeutic alliance. Provide psychoeducation. Learn relaxation skills. Cognitive restructuring. Assessment & Plan (05/16/2017 12:17 PM EDT): A: Anxiety symptoms P: Build therapeutic alliance. Provide psychoeducation. Learn relaxation skills. Cognitive restructuring. BMI 20 - 29.9 10/14/2013 Assessment & Plan (12/01/2021 9:37 AM EDT): Stable Patient actively works out Continue healthy living. Immunizations Immunization Administration Dates Next Due Flu, Multi Dose 0.5 ML 11/30/2021,07/12/2020 INFLUENZA, SEASONAL, INJECTABLE 06/20/2019,08/04,07/17/2013 Moderna COVID-19 Vaccine, re d cap blue label, 12+ Primary Series 02/17/2021,01/17/2021 TDAP 12/26/2023,12/09/2013 Family History Medical History Relation Name Comments No Significant Past Medical History Father Alive and well Relat ionship: Father Other (See Comments) Maternal Grandmother pneumonia Relationship: Maternal grandmother Other (See Comments) Mother Anxiety Relationship: Mother Diabetes Other 1 Diabetes Relati onship: Family h/o Hypertension Other 2 Hypertension Re lationship: Family h/o Other (See Comments) Other 3 Cancer - breast, ovarian, colo Relationship: Family h/o Relation Name Status Comments Father Maternal Grandmother Mother Other 1 Other 2 Other 3 Social History Tobacco Use Types Packs/Day Years Used Date Smoking Tobacco: Never Smokeless Tobacco: Never Tobacco Cessation:Counseling Given: Not Answered Alcohol Use Standard Drinks/Week Comments Not Currently 0 (1 standard drink = 0.6 oz pur e alcohol) Social Connections Answer Date Recorded Connectedness 0 05/24/2024 Financial Resource Strain Answer Date R ecorded Financial Resource Strain 0 2018 Stress Answer Date Recorded Stress 0 05/11/2019 Physical Activity Answer Date Recorded Physical Activity 0 05/11/2019 Food Insecurity Answer Date Recorded Food 2 12/26/2023 Transportation Needs Answer Date Record ed Transportation 1 12/26/2023 Housing Stability Answer Date Recorded Housing 1 12/26/2023 Safety and Environment Answer Date Liborio rded Safety 0 05/11/2019 Utilities Answer Date Recorded Utilities 1 12/26/2023 Employment Answer Date Recorded Stress 1 12/26/2023 Comments No Sex and Gender Information Value Date Recorded Sex Assigned at Female 04/29/2018 7:55 AM PDT Legal Sex Female 8:13 PM PDT Gender Identity Female 04/29/2018 7:55 AM PDT Sexual Orientation Straight 04/29/2018 7: 55 AM PDT Last Filed Vital Signs Vital Sign Reading Time Taken Comments Blood Pressure 100/68 12/26/2023 11:15 AM EDT Pulse 78 12/26/2023 11:15 AM EDT Temperature 35.6 ??C (96.1 ??F) 12/26/2023 11:15 AM E DT Respiratory Rate 16 11/30/2021 1:48 PM EDT Oxygen Saturation 98% 12/26/2023 11:15 AM EDT Inhaled Oxygen Concentration - - Weight 74.4 kg (164 lb) 12/26/2023 11:15 AM EDT Height 162.6 cm (5' 4 ) 12/26/2023 11:15 AM EDT Body Mass Index 28.15 12/26/2023 11:15 AM EDT Plan of Treatment Health Maintenance Due Date Last Done Comments Anxiety Screening [address] Colonography 2017 Colonoscopy 2017 Fecal DNA 2017 Flexible Sigmoidoscopy 2017 Pap Smear 02/12/2022 02/12/2019, 12/09/2013 Imm-Zoster, Recombinant (1 of 2) 2022 Colorectal Cancer Screening 12/07/2022 FIT/gFOBT 12/07/2022 12/07/2021, 11/16, 12/07/2021 Cervical Cancer Screening 02/13/2024 Pap + HPV 02/13/2024 02/12/2019 [id number] ( season) 2024 021, 01/17/2021 Imm-Influenza (#1) 2024 11/30/2021, 1 , 06/20/2019, Additional history exists Breast Cancer Screening (Mammogram) 07/11/2024 01/10/2024, 01/10/2024, 05/27/2019, Additional history exists Alcohol and Drug Screen 09/17/2024 12/26/19 24, 11/30/2021, 07/12/2020, Additional history exists Depression Annual Screen 09/17/2024 12/26/2023, 06/10/2014 Annual Preventive Care Visit 12/25/202406/2024, 11/30/2021, 05/13/2019 Diabetes Screening 12/25/2024 12/26/2023, 0 12/26/2023, 12/06/2021, Additional history exists Hypertension Screening (#1) 12/25/2024 Tobacco Screening 12/25/2024 12/26/2023 Lipid Screening 12/25/2028 12/26/2023, 11/16, 12/06/2021, Additional history exists Imm-DTaP/Tdap/Td (3 - Td or Tdap) 12/25/2033 024, 12/09/2013 HIV Screening Completed 02/17/2015 Hepatitis C Screening Completed 02/17/2015 Cervical Ablation/Cold-Knife Conization Discontinued Cervical Cryotherapy Discontinued Colposcopy Discontinued Endometrial Biopsy Discontinued Excision/Leep Discontinued HPV Genotyping Discontinued Imm-Hepatitis B Discontinued Vaginal Pap Discontinued Vulvoscopy Discontinued Goals Goal Patient Goal Type Associated Problems Recent Progress Patient-Stated? Author Reduce anxiety symptoms by learning relaxation skilsl General Generalized anxiety disorder Yes Alaina Patricia [facility] Procedures Procedure Name Priority Date/Time Associated Diagnosis Comments SCREENING MAMMOGRAPHY BI 2-VIEW BREAST INC CAD Routine 01/10/2024 Encounter for screening mammogram for malignant neoplasm of breast HEMOGLOBIN GLYCOSYLATED A1C Routine 12/26/2023 12:59 PM EDT Screening for diabetes mellitus Routine health maintenance LIPID PANEL Routine 12/26/2023 12:59 PM EDT Elevated lipoprotein(a) Routine health maintenance FECAL GLOBIN BY IMMUNOCHEMISTRY (FIT) Routine 12/07/2021 12:30 PM EDT Screening for colon cancer THIN PREP IMAGE PAP + HPV RNA (Q) Routine 02/12/2019 12:52 PM EDT Cervical cancer screening HIV 1/2 AG/AB Routine 02/17/2015 9:06 AM EDT Laboratory examination HEPATITIS C ANTIBODY Routine 02/17/2015 9:06 AM EDT Laboratory examination from Last 3 Months or Most Recently Relevant to Health Maintenance Results * SCREENING MAMMOGRAPHY BI 2-VIEW BREAST INC CAD (01/10/2024) Impressions Lydia Tomas - 01/10/2024 Mammogram Screening With Tomosynthesis With CAD (Bilateral) Performed: 01/10/2024 at 10:44 AM Accession Number: [id number] Reason For Exam Annual Exam Images All Patient Images Impression 1. ??Mass in the left breast for which additional imaging is recommended with diagnostic mammography and possible ultrasound. 2. ??No mammographic evidence of malignancy in the right breast. BI-RADS 0 INCOMPLETE Needs additional imaging evaluation The patient will be notified of the results and recommendations. The mammography department will contact the patient to arrange for the additional imaging. Narrative BI MAMMOGRAM SCREENING WITH TOMOSYNTHESIS WITH CAD (BILATERAL) Additional patient information: Screening. COMPARISON: Comparison is made with relevant prior imaging. Breast composition: There are scattered areas of fibroglandular density. FINDINGS: Previous reduction mammoplasty. Right No abnormal masses, suspicious calcifications, or other significant findings are identified mammographically in the right breast. Left A mass is present on CC view in the inner left breast at posterior depth. Mammogram Screening (Bilateral): Patient Communication Not released to patient Not Released Not seen Not seen Print Version--External Results Report Ordered On 01/03/2024 ??9:05 AM Ordering Provider Authorizing Provider Ordering User Ordering Department Sue Hampton PA Calder, Nicole Michelle, PA Batista, Brenda MAMMOGRAPHY VAN Physician [facility] Physician [facility] Phone Icon [phone] Phone Icon [phone] Phone Icon [phone] Signed by Signed Time Phone Pager Lorena Jarquin MD 01/12/2024 07:51 15411 Mammogram Screening (Bilateral) ( (Order [id number]) Image Documentation: Technologist Breast Imaging ImageBreast Imaging ImageBreast Imaging ImageBreast Imaging Image 1. Scar - Noted on 06/04/2017 Location: 6 o'clock Side: right 2. Scar - Noted on 06/04/2017 Location: 11 o'clock Side: right 3. Scar - Noted on 06/04/2017 Location: 6 o'clock Side: left 4. Scar - Noted on 06/04/2017 Location: 6 o'clock Side: left 5. Scar - Noted on 06/04/2017 Location: 5 o'clock Side: left 6. Scar - Noted on 06/04/2017 Location: 8 o'clock Side: right 7. Scar - Noted on 06/04/2017 Depth: anterior Side: right 8. Scar - Noted on 06/04/2017 Depth: middle Side: right 9. Scar - Noted on 06/04/2017 Depth: anterior Side: left 10. Scar - Noted on 06/04/2017 Depth: middle Side: left Documented by Sara Trammell RTRM on 05/27/2019 Reviewed by Sara Trammell RTRM on 05/27/2019 Sue [facility] MAM[facility] Final Result * (ABNORMAL) HEMOGLOBIN GLYCOSYLATED A1C (12/26/2023 12:59 PM EDT) HEMOGLOBIN A1C 5.8(H) <5.7 % of total Hgb [facility] Comment: For someone without known diabetes, a hemoglobin A1c value between 5.7% and 6.4% is consistent with prediabetes and should be confirmed with a follow-up test. For someone with known diabetes, a value <7% indicates that their diabetes is well controlled. A1c targets should be individualized based on duration of diabetes, age, comorbid conditions, and other considerations. This assay result is consistent with an increased risk of diabetes. Currently, no consensus exists regarding use of hemoglobin A1c for diagnosis of diabetes for children. Blood Blood / Unknown 12/26/2023 1 2:59 PM EDT 12/26/2023 5:53 PM EDT Narrative [facility] - 12/27/2023 5:19 AM EDT ? This test was performed on the [employer] radu c503 platform. Effective 11/19/23, a change in test platforms from the [employer] Chief Telephone Operator to the [employer] radu c503 may have shifted HbA1c results compared to historical results. Based on laboratory validation testing conducted at [facility], the [employer] platform relative to the [employer] platform had an average increase in HbA1c value of < or = 0.3%. This difference is within accepted variability established by the National Glycohemoglobin Standardization Program. Note that not all individuals will have had a shift in their results and direct comparisons between historical and current results for testing conducted on different platforms is not recommended. Sue [facility] - BLOOD DRAW Edited Result - Final [facility] [address] [address], [facility] [employer] [address] [address] * (ABNORMAL) LIPID PANEL (12/26/2023 12:59 PM EDT) CHOLESTEROL, TOTAL 220(H) <200 mg/dL [facility] HDL CHOLESTEROL 70 > OR = 50 mg/dL [facility] TRIGLYCERIDES 65 <150 mg/dL [facility] LDL-CHOLESTEROL 134(H) mg/dL (calc) [facility] Comment: Reference range: <100 Desirable range <100 mg/dL for primary prevention; ?? <70 mg/dL for patients with CHD or diabetic patients with > or = 2 CHD risk factors. LDL-C is now calculated using the Kirk calculation, which is a validated novel method providing better accuracy than the Friedewald equation in the estimation of LDL-C. Jarret RAMOS et al. MARCUS. 2013;310(19): 2670-6525 (http://education.Sitesimon/faq/NYB771) CHOL/HDLC RATIO 3.1 <5.0 (calc) [facility] NON-HDL CHOLESTEROL 150(H) <130 mg/dL (calc) [facility] Comment: For patients with diabetes plus 1 major ASCVD risk factor, treating to a non-HDL-C goal of <100 mg/dL (LDL-C of <70 mg/dL) is considered a therapeutic option. Blood Blood / Unknown 12/26/2023 1 2:59 PM EDT 12/27/2023 2:28 AM EDT us Sue [facility] - BLOOD DRAW Edited Result - Final [facility] [address] [address], [facility] [address] [address] * FECAL GLOBIN BY IMMUNOCHEMISTRY (FIT) (12/07/2021 12:30 PM EDT) IFOBT Negative Negative [facility] Comment:Processed and/or per formed at [address] [place] [address] Stool Stool specimen / Unknown 12/07/2021 12:30 PM EDT us Sue [facility] - NO BLOOD DRAW Final Resul t Performing Organization Address City/[facility]/ZIP Co de Phone Number [address]?? [place] [address], * THIN PREP IMAGE PAP + HPV RNA [id number] (Q) (02/12/2019 12:52 PM EDT) Pathologist [facility] CLINICAL INFORMATION See Note [facility] Comment:Normal exam LMP See Note [facility] Comment:NONE GIVEN PREV. PAP See Note [facility] Comment:NG - NOT GIVEN PREV. BX See Note [facility] Comment:NG - NOT GIVEN SOURCE See Note [facility] Comment:Cervix STATEMENT OF ADEQUACY See Note [facility] [employer] Comment: Satisfactory for evaluation. Endocervical/transformation zone component absent. Age and/or menstrual status not provided INTERPRETATION/RESU LT See Note [facility] Comment:Negative for intraep ithelial lesion or malignancy. COMMENT See Note [facility] Comment: This Pap test has been evaluated with computer assisted technology. FINAL INSPECTOR AND TESTER See Note [facility] Comment: RK, CT(ASCP) CT screening location: [address] ??[address] COMMENT [facility] HPV MRNA E6/E7 Not Detected Not Detected [facility] [place] [employer] Comment: This test was performed using the APTIMA HPV Assay ([employer] This assay detects E6/E7 viral messenger RNA (mRNA) from 14 high-risk HPV types (16,18,31,33,35,39,45,51,52,56,58,59,66,68). The analytical performance characteristics of this assay have been determined by [employer]. The modifications have not been cleared or approved by the FDA. This assay has been validated pursuant to the CLIA regulations and is used for clinical purposes. NO COLLECTION DATE RECEIVED. WE HAVE USED THE DATE THE SPECIMEN WAS RECEIVED BY THIS LABORATORY THE COLLECTION DATE. IF THIS IS INCORRECT, PLEASE CONTACT CLIENT SERVICES. PHONE NUMBER: Cytologic material (specimen) Cervix uteri structure / Unknown 02/08/2019 1:03 AM EDT Narrative [facility] - 02/12/2019 12:52 PM EDT EXPLANATORY NOTE: The Pap is a screening test for cervical cancer. It is not a diagnostic test and is subject to false negative and false positive results. It is most reliable when a satisfactory sample, regularly obtained, is submitted with relevant clinical findings and history, and when the Pap result is evaluated along with historic and current clinical information. us Cecille [facility] - NO BLOOD DRAW Final Result [facility] [address] [address], [facility] [address] [address] * HIV 1/2 AG/AB (02/17/2015 9:06 AM EDT) HIV 1/2 AB/AG NEG NEG [facility] Blood specimen (specimen) Blood / Unknown 02/17/2015 9:06 AM EDT us [facility] - BLOOD DRAW Final Resul t [facility] [address] [place] [address], [place] [phone] * HEPATITIS C ANTIBODY (02/17/2015 9:06 AM EDT) HEP C ANTIBODY NEG NEG [facility] Blood specimen (specimen) Blood / Unknown 02/17/2015 9:06 AM EDT [facility] - BLOOD DRAW Final Resul t [facility] [address] [place] [address], [place] [phone] from Last 3 Months or Most Recently Relevant to Health Maintenance Insurance [facility] [employer] [place] Care Teams Duplicate Maker Relationship Specialty Start Date End Date Sue Hampton PA [address] [place] [address] PCP - General [facility] 12/15/21
== END 2024-12-11 08:49 | disposition home or self-care (01) ==
LOC: HO.HGS 08:33
PROVIDERS: Visit Provider Surgery
DX: Z90.49 Acquired absence of other specified parts of digestive tract (principal)
CPT/HCPCS: 99024

== ENCOUNTER → 2024-12-11 08:33 | Outpatient (BNVA) | payer MEDICAID, SELFPAY | PROVIDERS: Visit Provider Surgery | DX: Z09 Encounter for follow-up examination after completed treatment for conditions other than malignant neoplasm (principal); Z90.49 Acquired absence of other specified parts of digestive tract | CPT/HCPCS: 99212 ==

== ENCOUNTER 2024-12-30 17:43 | Emergency (ER) | payer MEDICAID, SELFPAY ==
--- NOTE | ~2024-12-30 | CT_ITS ---
CLINICAL HISTORY: severelower abdominal pain distention s p surgery CT abdomen and pelvis with contrast Comparison: CT/SR - CT ABDOMEN PELVIS WO IV CON - 12/03/24 13:43 EDT Findings: The lung bases are clear. There is a low-attenuation 1.2 x 0.5 cm structure within the left kidney which is not cyst attenuation, series 2, image 25. No hydronephrosis of either kidney. Spleen, adrenal glands, pancreas, gallbladder and liver are unremarkable. No bowel obstruction, pneumoperitoneum, or pneumatosis. Moderately large amount of fecal loading within the colon. No bowel wall thickening. The appendix is absent. The bones are intact. IMPRESSION: No acute findings. This document has been electronically signed by: Rakan Kang MD on 12/30/2024 21:05:35
[2024-12-30 17:54] VITALS: BP 111/50; PULSE 75; RESP 16; TEMP 36.7; O2SAT 98; BMI 23.2
--- NOTE | 2024-12-30 18:00 | ED_ITS ---
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 She notes she only has relief when she takes the oxycodone. She reports no fever, no n/v, she has constipation at times but takes senna. She states she feels swollen and bloated. I explained she should not be needing oxycodone at this point but she states the pain is sever and nothing helps it. complaint: abdominal pain Onset (ago): week(s) (since surgery) Location: abdomen Radiation: non-radiation Severity: moderate Quality: crushing and constant Pain Consistency: constant Relieving factors: none Exacerbating factors: movement Associated symptoms: other (constipation) Treatments prior to arrival: none Related Data Previous Rx's ?Medication ?Instructions ?Recorded docusate sodium 100 mg capsule 100 mg PO BID #30 caps 12/04/24 (Colace) oxycodone 5 mg tablet 5 mg PO Q4H PRN pain (scale score 12/04/24 7-10) #26 tabs acetaminophen 500 mg capsule 1,000 mg (2 x 500 mg) PO Q8H PRN 12/30/24 fever or pain #14 caps naproxen 375 mg tablet 375 mg PO BID PRN pain #14 tabs 12/30/24 polyethylene glycol 3350 17 17 g PO DAILY #238 grams 12/30/24 gram/dose oral powder (Miralax) Allergies Allergy/AdvReac Type Severity Reaction Status Date / Time No Known Allergies Allergy Verified 12/30/24 17:55 Review of Systems 2 Review of Systems: Constitutional : No Weight loss, No Fever, No Chills ENT/Mouth : No sore throat, No Rhinorrhea Eyes: No Swelling, No Redness Cardiovascular : No Chest Pain, No SOB, NoEdema Respiratory : No Cough, No Sputum, No Wheezing Gastrointestinal : no Nausea, no Vomiting, no Diarrhea, positive abdominal Pain, No Hematochezia, No Melena, pos constipation Genitourinary : No Dysuria, No Urinary Frequency, No Hematuria, No Urgency Musculoskeletal : No joint pain, No Myalgias, No Joint Swelling Skin : No Skin Lesions, No rash Neuro : No Weakness, No Numbness, No Dizziness, No Headache Psych : No Anxiety/Panic, No Depression All other systems reviewed and are negative. [facility] Past Medical History Attestation statement: The following information was validated with the patient. Source: old records reviewed Medical History History of herniated intervertebral disc Neuropathy Insomnia Surgical History H/O abdominal surgery H/O breast surgery H/O section Social History Social History Household Members: None Housing: House Are you a primary floor care specialist to a significant other at home: No Do you presently have visiting nurse or other home services: No Unable to assess alcohol history related to: Unknown Patient Tobacco Use Status: Never used Tobacco Smoked in Last 30 Days: No Use of substances other than those prescribed or required for medical reasons: No Any prior treatment program specific to substance use: No Advance Directives: No Advance Directives Information Provided: No Do you have a plan to hurt others: No Plan Patient : No Physical Exam ED Vital Signs: Vital Signs - 24 hr 12/30/24 17:54 12/30/24 19:27 12/30/24 21:47 Temperature 98.1 F 97.9 F 97.9 F Pulse Rate 75 66 66 Respiratory Rate 16 16 16 Blood Pressure 111/50 L 119/69 119/69 Pulse Oximetry 98 100 100 Oxygen Delivery Method Room Air Room Air Room Air BMI result Body Mass Index 23.2 Appearance: Alert. Oriented X3. No acute distress. Eyes: Pupils equal, round and reactive to light. ENT: Pharynx normal. Neck: Normal inspection. Neck supple. CVS: Normal heart rate and rhythm. Pulses normal. Respiratory: No respiratory distress. Breath sounds normal. Abdomen: Soft and incisions are healed but she has slight distention and diffuse ttp no mass felt no signs of infection Skin: Skin warm and dry. Normal skin color. Normal skin turgor. Extremities: No lower extremity edema. No calf ttp Neuro: Oriented X 3. No motor deficit. No sensory deficit. CN2-12 intact Course Course Course Narrative: RME: 54-year-old female status post appendectomy 2 weeks ago presents to ED for left-sided abdominal pain with back pain. Patient denies any postop complications. Patient states no relief with diclofenac and Tylenol. Labs ordered. Positive for abdominal tenderness Reevaluation(s) Reevaluation #1: signed out to Dr Ramirez for follow up of CT scan 9pm Reevaluation #2: Dr. Ramirez: The patient was signed out to me at change of shift pending the results of a CT scan of the abdomen and pelvis. These pelvis shows that there was an awful lot of stool in the colon but no other acute findings. I explained to the patient that she may have some degree of constipation. She will be given a bottle of magnesium citrate which she may drink at home. She also complained of left-sided abdominal pain that she says radiates down her left leg. This sounds like some form of sciatica. I will prescribe acetaminophen and naproxen. The patient says that she does not have a PCP at the moment. She says she is on a waiting list for a PCP. For her abdominal discomfort and bowel function she may try to follow up with Dr. Landeros. Otherwise she should continue her efforts to get a or return to the ER if worse. Time: 21:36 Medications Administered Discontinued Medications Generic Name Dose Route Start Last Admin Trade Name Treva PRN Reason Stop Dose Admin Iohexol 100 ml 12/30/24 20:12 12/30/24 20:16 Iohexol 350 Mg/Ml 100 Ml Infus..Btl IV 12/30/24 20:13 85 ml ONCE ONE Administration Ketorolac Tromethamine 10 mg 12/30/24 21:30 12/30/24 21:40 Ketorolac Tromethamine 15 Mg/Ml Vial IVPUSH 12/30/24 21:31 10 mg ONCE ONE Administration Magnesium Citrate 300 ml 12/30/24 21:21 12/30/24 21:42 Magnesium Citrate 300 Ml Solution PO 12/30/24 21:22 300 ml ONCE ONE Administration Morphine Sulfate 4 mg 12/30/24 19:44 12/30/24 19:55 Morphine Sulfate 4 Mg/Ml Cartridge IVPUSH 12/30/24 19:45 4 mg ONCE ONE Administration Protocol Medical Decision Making Medical Decision Making MDM Narrative: 54 yo female with PMH of lap appendectomy on 12/03/24 now here with persistent pain since surgery asking for oxycodone. On exam she is diffusely ttp with some distention - this could be constipation, ileus, opiate dependence, adhesions - will obtain labs and given her degree of pain CT scan if CT scan obtained would not fill narcotic as she is 3 weeks post operative Differential Diagnosis Differential Diagnoses: The differential diagnosis associated with the presentation includes constipation, ileus, adhesions, post operative pain Lab Data [facility] Lab Attestation statement: I reviewed the patient's lab results. 12/30/24 18:13 12/30/24 18:13 Labs: Lab Results 12/30/24 Range/Units 18:13 WBC 6.1 (4.8-10.8) X10*3/uL RBC 3.98 L (4.20-5.50) X10*6/uL Hgb 11.7 L (12.0-16.0) g/dl Hct 36.7 L (37.0-47.0) % MCV 92.2 (80.0-98.0) fL MCH 29.4 (27.0-33.0) pg MCHC 31.9 (31.0-35.0) g/dl RDW 13.6 (11.0-16.0) % Plt Count 270 (160-400) X10*3/uL MPV 10.2 (9.4-12.3) fL Immature Gran % (Auto) 0.2 (0.0-0.4) % Neut % (Auto) 36.9 L (45-73) % Lymph % (Auto) 54.5 H (20-40) % [place] % (Auto) 6.9 (2-11) % Eos % (Auto) 1.0 (0-4) % Baso % (Auto) 0.5 (0-2) % Lymph # (Auto) 3.3 (1.2-4.9) X10*3/uL [place] # (Auto) 0.4 (0.1-1.2) X10*3/uL Eos # (Auto) 0.1 (0.0-0.4) X10*3/uL Baso # (Auto) 0.0 (0.0-0.2) X10*3/uL Abs Immat Gran (auto) 0.01 (0.00-0.03) X10*3/uL Absolute Neuts (auto) 2.2 (2.0-8.3) x10*3/uL Absolute Nucleated RBC 0.000 (0.0-0.012) X10*3/uL Nucleated RBC % (auto) 0.0 (0.0-0.2) /100WBC Sodium 146 H (135-145) mmol/L Potassium 4.1 (3.3-5.1) mmol/L Chloride 108 (96-108) mmol/L Carbon Dioxide 31 H (22-29) mmol/L Anion Gap 11 L (12-20) BUN 23 H (9-16) mg/dL Creatinine 0.78 (0.5-1.4) mg/dL Estim Creat Clear Calc 72.8 Estimated GFR > 60 Random Glucose 84 (60-115) mg/dL Calcium 9.5 (8.4-10.2) mg/dL Total Bilirubin 0.2 (0.0-1.0) mg/dL AST 24 (5-31) U/L ALT 20 (0-31) U/L Alkaline Phosphatase 87 (39-117) U/L Total Protein 6.9 (6.5-8.0) g/dL Albumin 4.1 (3.5-5.0) g/dL Beta HCG, Quant < 2 mIU/mL Urine Color Yellow Urine Appearance Turbid Urine pH 8.0 (5.0-9.0) Ur Specific [place] >= 1.030 H (1.005-1.025) Urine Protein Trace (Neg-Trace) mg/dL Urine Glucose (UA) Negative (Negative) mg/dL Urine Ketones Trace (Negative) mg/dL Urine Blood Negative (Negative) Urine Nitrite Negative (Negative) Ur Leukocyte Esterase Trace H (Negative) Urine RBC 0-2 (0-2) /HPF Urine WBC 0-5 (0-5) /HPF Ur Squamous Epith Cells 0-2 (0-2) /HPF Urine Bacteria None Seen (None Seen) Hyaline Casts 0-2 (0-2) /LPF Independent Historian Clinical information obtained from an independent historian. History obtained from or confirmed by: Spouse External Record Review External record reviewed: Inpatient record and Outpatient record Discharge Plan Discharge Clinical Impression: Abdominal pain, Low back pain Patient Disposition: Home, Self-Care Instructions: Constipation (ED) Additional Instructions: Your testing today does not show any dangerous process. However your CAT scan does show that you have a lot of stool in your colon suggesting that you have some degree of constipation. Your blood testing also suggest that you have some degree of mild dehydration. You has been given a bottle of magnesium citrate. Please drink this at home over the next day. This should help in relieving your constipation. Additionally I would recommend using MiraLax (polyethylene glycol) daily as prescribed for at least a week and possibly longer. Also please drink lot of fluids. I have sent a prescription for naproxen and acetaminophen which you may use as needed for pain. Please continue your efforts to get a primary care doctor. Also follow up with Dr. Landeros if you continued to have significant abdominal discomfort. Return to the emergency room if significantly worse. Prescriptions: New naproxen 375 mg tablet 375 mg PO BID PRN (Reason: pain) Qty: 14 0RF acetaminophen 500 mg capsule 1,000 mg PO Q8H PRN (Reason: fever or pain) Qty: 14 0RF polyethylene glycol 3350 [Miralax] 17 gram/dose powder 17 g PO DAILY Qty: 238 0RF No Action docusate sodium [Colace] 100 mg capsule 100 mg PO BID Qty: 30 0RF oxycodone 5 mg tablet 5 mg PO Q4H PRN (Reason: pain (scale score 7-10)) Qty: 26 0RF Rx Instructions: Partial Fill upon patient request. Referrals: Chinmay Landeros MD [Physician] - Interventions: ED Discharge Assessment Last Done: 12/30/24 21:47 Discharge Date/Time: 12/30/24 21:47 Print Language: Panamanian
[2024-12-30 18:17] LABS: MANUAL DIFF FLAG NO
[2024-12-30 18:21] LABS: Basophils Percent Auto 0.5 % (0-2); Eosinophils Absolute Auto 0.1 X10*3/uL (0.0-0.4); Hematocrit 36.7 % (37.0-47.0); Hemoglobin 11.7 g/dl (12.0-16.0); Imm Gran Abs Auto 0.01 X10*3/uL (0.00-0.03); Imm Gran Pct Auto 0.2 % (0.0-0.4); Lymphocytes Absolute Auto 3.3 X10*3/uL (1.2-4.9); Lymphocytes Percent Auto 54.5 % (20-40); Mean Corpuscular HGB Conc 31.9 g/dl (31.0-35.0); Mean Corpuscular Hemoglobin 29.4 pg (27.0-33.0); Mean Corpuscular Volume 92.2 fL (80.0-98.0); Mean Platelet Volume 10.2 fL (9.4-12.3); Monocytes Absolute Auto 0.4 X10*3/uL (0.1-1.2); Monocytes Percent Auto 6.9 % (2-11); Neutrophils Absolute Auto 2.2 x10*3/uL (2.0-8.3); Neutrophils Percent Auto 36.9 % (45-73); Platelet Count 270 X10*3/uL (160-400); Red Blood Count 3.98 X10*6/uL (4.20-5.50); Red Cell Distribution Width 13.6 % (11.0-16.0); White Blood Count 6.1 X10*3/uL (4.8-10.8)
[2024-12-30 18:24] LABS: Appearance Urine Turbid; Color Urine Yellow; Glucose Urine UA Negative (Negative); Leukocyte Esterase Urine Trace (Negative); Nitrite Urine Negative (Negative); Specific Gravity - Urine >= 1.030 (1.005-1.025); UMIC TRIGGER UACC YES; Urine Blood Negative (Negative); Urine Ketones Trace mg/dL (Negative); Urine Protein Trace mg/dL (Neg-Trace)
[2024-12-30 18:29] LABS: Bacteria Urine None Seen (None Seen); Hyaline Casts Urine 0-2 /LPF (0-2); RBC Urine 0-2 /HPF (0-2); Squamous Epithelial Cell Urine 0-2 /HPF (0-2); WBC Urine 0-5 /HPF (0-5)
[2024-12-30 18:41] LABS: Alanine Aminotransferase 20 U/L (0-31); Albumin Level 4.1 g/dL (3.5-5.0); Alkaline Phosphatase 87 U/L (39-117); Anion Gap 11 (12-20); Aspartate Amino Transferase 24 U/L (5-31); Bilirubin Total 0.2 mg/dL (0.0-1.0); Blood Urea Nitrogen 23 mg/dL (9-16); Calcium 9.5 mg/dL (8.4-10.2); Carbon Dioxide 31 mmol/L (22-29); Chloride 108 mmol/L (96-108); Creatinine Clr Calc Pharmacy 72.8; Estimated Glomerular Filt Rate > 60; Glucose Random 84 mg/dL (60-115); HCG Quantitative < 2 mIU/mL; Potassium 4.1 mmol/L (3.3-5.1); Sodium 146 mmol/L (135-145); Total Protein 6.9 g/dL (6.5-8.0)
[2024-12-30 19:27] VITALS: BP 119/69; PULSE 66; RESP 16; TEMP 36.6; O2SAT 100
[2024-12-30] MEDS: Morphine Sulfate 4 MG/ML CARTRIDGE IVPUSH (19:55)
--- NOTE | 2024-12-30 20:02 | PC.NURSE ---
Pt ambulatory to ED 26 for treatment assumed care of pt at 1945. Provider to bedside for primary eval. A&Ox3 skin pwd respirations even unlabored. Endorsing LLQ pain radiating into left flank. 3 weeks post op from appendectomy. Reporting nausea and intermittent constipation taking senna. Denies fever, denies vomiting or diarrhea. Last BM yesterday. IV access obtained, medicated per MAR, awaiting CT scan.
[2024-12-30] MEDS: iohexoL 350 MG/ML 100 ML INFUS..BTL IV (20:16)
--- NOTE | 2024-12-30 20:49 | PC.NURSE ---
Pt returned from CT, reports positive relief from previously administered pain med. Awaiting results, aware of plan of care.
[2024-12-30] MEDS: Ketorolac Tromethamine 15 MG/ML VIAL 10 MG IVPUSH (21:40)
[2024-12-30] MEDS: Magnesium Citrate 300 ML SOLUTION PO (21:42)
[2024-12-30 21:47] VITALS: BP 119/69; PULSE 66; RESP 16; TEMP 36.6; O2SAT 100
== END 2024-12-30 21:47 | disposition home or self-care (01) ==
PROVIDERS: Physician Assistant; Emergency Provider Emergency Medicine
DX: R10.9 Unspecified abdominal pain (principal); M54.50 Low back pain, unspecified; Z98.890 Other specified postprocedural states; Z90.49 Acquired absence of other specified parts of digestive tract
CPT/HCPCS: 36415; 74177; 80053; 81001; 84702; 85025; 96374; 96375; 99284; J1885; J2270; Q9967

== ENCOUNTER → 2024-12-30 19:44 | Outpatient (BNV) | payer MEDICAID, SELFPAY | PROVIDERS: Emergency Provider Emergency Medicine; Visit Provider Radiology Diagnostic Radiology | DX: R10.30 Lower abdominal pain, unspecified (principal); N28.9 Disorder of kidney and ureter, unspecified | CPT/HCPCS: 74177 ==